=== PATIENT | female | born 1965 | race Caucasian/White ===

== ENCOUNTER 2020-03-07 11:09 | Emergency (ER) | payer SELFPAY ==
[2020-03-07] MEDS ORDERED: NORMAL SALINE 1000 ML 1,000 ML IV ONE (11:32)
[2020-03-07] MEDS ORDERED: KETOROLAC TROMETHAMINE INJ/PF 30 MG/1 ML SDV IV ONE (11:32)
--- NOTE | 2020-03-07 11:36 | ER Document Report ---
ED Medical Screen (RME) - General Chief Complaint: Flank Pain Stated Complaint: URINARY Time Seen by Provider: 03/07/20 11:25 Mode of Arrival: Ambulatory Information source: Patient Notes: 54-year-old female presented to ED for frequent urination starting on Saturday that developed blood by Saturday afternoon. She states she then started with right flank pain. She states she also has a gland in the left side of her neck that feels swollen and tender. She does smoke a pack a day does not drink or use any drugs. 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 Patient is alert oriented respirations regular nonlabored speaking in full sentences. I have greeted and performed a rapid initial assessment of this patient. A comprehensive ED assessment and evaluation of the patient, analysis of test results and completion of medical decision making process will be conducted by an additional ED providers. - Related Data Allergies/Adverse Reactions: Penicillins Allergy (Verified 03/07/20 11:25) Past Medical History - General Information source: Patient - Social History Cigarette use (# per day): Yes - Pack and a half a day Frequency of alcohol use: None Drug Abuse: None Lives with: Family Family history: Reviewed & Not Pertinent - Past Medical History Cardiac Medical History: Reports: None Pulmonary Medical History: Reports: None EENT Medical History: Reports: None Neurological Medical History: Reports: Hx Migraine Endocrine Medical History: Reports: None Renal/ Medical History: Reports: None Malignancy Medical History: Reports: None GI Medical History: Reports: None Musculoskeltal Medical History: Reports Hx Arthritis, Reports Hx Musculoskeletal Deformity, Reports Hx Musculoskeletal Trauma Skin Medical History: Reports None Psychiatric Medical History: Reports: None Traumatic Medical History: Reports: Hx Spine Fracture Infectious Medical History: Reports: None Past Surgical History: Reports: Hx Abdominal Surgery - Laparoscopic for fluid in her abdomen, Hx Appendectomy, Hx Section, Hx Gynecologic Surgery - Cyst removed ruptured artery in her vagina repaired, Hx Orthopedic Surgery - Left elbow Physical Exam - Vital signs Vitals: Temp Pulse Resp BP Pulse Ox 98.7 F 91 18 131/91 H 98 03/07/20 11:15 03/07/20 11:15 03/07/20 11:15 03/07/20 11:15 03/07/20 11:15 Course - Vital Signs Vital signs: Temp Pulse Resp BP Pulse Ox 98.7 F 91 18 131/91 H 98 03/07/20 11:15 03/07/20 11:15 03/07/20 11:15 03/07/20 11:15 03/07/20 11:15
[2020-03-07 12:03] LABS: APPEARANCE,URINE CLEAR; BILIRUBIN,URINE NEGATIVE (NEGATIVE); COLOR,URINE STRAW; GLUCOSE, URINE NEGATIVE (NEGATIVE); KETONES,URINE NEGATIVE (NEGATIVE); LEUKOCYTE ESTERASE,URINE NEGATIVE (NEGATIVE); NITRITE,URINE NEGATIVE (NEGATIVE); PROTEIN,URINE NEGATIVE (NEGATIVE); URINE SPECIFIC GRAVITY 1.004; UROBILINOGEN,URINE NEGATIVE mg/dL (<2.0)
--- NOTE | 2020-03-07 12:26 | RADIOLOGY REPORT (SQ) ---
EXAM DESCRIPTION: CT ABD/PELVIS NO ORAL OR IV IMAGES COMPLETED DATE/TIME: 03/07/2020 12:07 pm REASON FOR STUDY: Right flank pain hematuria COMPARISON: None. TECHNIQUE: CT scan of the abdomen and pelvis performed without intravenous or oral contrast. Images reviewed with lung, soft tissue, and bone windows. Reconstructed coronal and sagittal MPR images revi ewed. All images stored on PACS. All CT scanners at this facility use dose modulation, iterative reconstruction, and/or weight based d osing when appropriate to reduce radiation dose to as low as reasonably achievable (ALARA). [facility]: Dose Right [facility]: CareDose [facility]: Dose Right [facility]: Teradose 4D [facility]: Sun Number RADIATION DOSE: CT Rad equipment meets quality standard of care and radiation dose reduction techniq ues were employed. CTDIvol: 9.4 mGy. DLP: 508 mGy-cm.mGy. LIMITATIONS: None. FINDINGS: LOWER CHEST: No significant findings. No nodules or infiltrates. NON-CONTRASTED LIVER, SPLEEN, ADRENALS: Evaluation limited by lack of IV contrast. Low-density right adrenal mass measuring 3.5 x 2.3 cm most compatible with adrenal adenoma (Hounsfield units -6). No other identified significant masses. PANCREAS: No masses. No peripancreatic inflammatory changes. GALLBLADDER: No identified stones by CT criteria. No inflammatory changes to suggest cholecystitis. RIGHT KIDNEY AND URETER: No suspicious masses. Assessment limited by lack of IV contrast. No signif icant calcifications. No hydronephrosis or hydroureter. LEFT KIDNEY AND URETER: No suspicious masses. Assessment limited by lack of IV contrast. No signifi cant calcifications. No hydronephrosis or hydroureter. AORTA AND RETROPERITONEUM: Aortoiliac atherosclerosis without aneurysm. No retroperitoneal masses or adenopathy. BOWEL AND PERITONEAL CAVITY: No obvious masses or inflammatory changes. No free fluid. APPENDIX: Not clearly identified. PELVIS, BLADDER, AND ABDOMINAL WALL:Decompressed urinary bladder with circumferential wall thickening . No pelvic adenopathy or mass. BONES: No significant findings. OTHER: No other significant finding. IMPRESSION: 1. Decompressed urinary bladder with circumferential wall thickening, possibly secondar y to decompressed state or cystitis. Recommend correlation with urinalysis. No hydronephrosis or ot her evidence of obstructive uropathy. 2. 3.5 x 2.3 cm right adrenal low-density lesion most compatible with an adrenal adenoma. COMMENT: Quality ID # [id number]: Final reports with documentation of one or more dose reduction techniques (e.g., Automated exposure control, adjustment of the mA and/or kV according to patient size, use of iterative reconstruction technique) TECHNICAL DOCUMENTATION: JOB ID: [id number] 2010 [employer]- All Rights Reserved Reading location - IP/workstation name: [email or web address]
[2020-03-07 13:25] LABS: ABSOLUTE BASOPHILS # (AUTO) 0.1 10^3/uL (0.0-0.2); ABSOLUTE EOSINOPHILS # (AUTO) 0.1 10^3/uL (0.0-0.6); ABSOLUTE LYMPHOCYTES (AUTO) 2.8 10^3/uL (0.5-4.7); ABSOLUTE MONOCYTES (AUTO) 0.4 10^3/uL (0.1-1.4); ABSOLUTE NEUT (AUTO) 4.7 10^3/uL (1.7-8.2); BASOPHILS % (AUTO) 0.8 % (0-2); EOSINOPHILS % (AUTO) 0.9 % (0-6); HEMATOCRIT 44.7 % (36.0-47.0); HEMOGLOBIN 15.5 g/dL (12.0-15.5); LYMPHOCYTES % (AUTO) 34.3 % (13-45); MEAN CORPUSCULAR HEMOGLOBIN 33.3 pg (27.0-33.4); MEAN CORPUSCULAR HGB CONC 34.6 g/dL (32.0-36.0); MEAN CORPUSCULAR VOLUME 96 fl (80-97); MONOCYTES % (AUTO) 5.2 % (3-13); PLATELET COUNT 249 10^3/uL (150-450); RED BLOOD COUNT 4.64 10^6/uL (3.72-5.28); RED CELL DISTRIBUTION WIDTH 13.7 % (11.5-14.0); SEGMENTED NEUTROPHILS % (AUTO) 58.8 % (42-78); TOTAL CELLS COUNTED % (AUTO) 100 %
[2020-03-07 13:48] LABS: ALBUMIN 4.3 g/dL (3.5-5.0); ALKALINE PHOSPHATASE 103 U/L (38-126); ANION GAP 6 (5-19); ASPARTATE AMINO TRANSFERASE 27 U/L (14-36); BILIRUBIN,TOTAL 0.6 mg/dL (0.2-1.3); BLOOD UREA NITROGEN 11 mg/dL (7-20); CALCIUM 9.5 mg/dL (8.4-10.2); CARBON DIOXIDE 26 mmol/L (22-30); CHLORIDE 107 mmol/L (98-107); GLUCOSE 101 mg/dL (75-110); POTASSIUM 4.3 mmol/L (3.6-5.0); TOTAL PROTEIN 7.5 g/dL (6.3-8.2)
[2020-03-07] MEDS ORDERED: CIPROFLOXACIN HCL 500 MG TABLET PO ONE (14:45)
--- NOTE | 2020-03-07 14:54 | ER Document Report ---
Entered by ALBERTO SIU SCRIBE 03/07/20 1353 Acting as scribe for:NETO VAZQUEZ MD ED GI/ - General Chief Complaint: Flank Pain Stated Complaint: URINARY Time Seen by Provider: 03/07/20 11:25 Mode of Arrival: Ambulatory Information source: Patient Notes: This 54 year old female patient presents to the emergency department today with complaints of frequent urination and left flank pain since x2 days ago. Patient states she feels like she has to urinate every x3 min and little comes out or nothing. Patient states there is a little amount of blood when wiping. Patient states she has been drinking plenty of water and denies any discharge or fever. Patient also reports some pain in the"lymph node under her left ear." - Related Data Allergies/Adverse Reactions: Penicillins Allergy (Verified 03/07/20 11:25) Past Medical History - General Information source: Patient - Social History Smoking Status: Current Every Day Smoker Cigarette use (# per day): Yes - Pack and a half a day Frequency of alcohol use: None Drug Abuse: None Lives with: Family Family History: Reviewed & Not Pertinent Patient has homicidal ideation: No Neurological Medical History: Reports: Hx Migraine Musculoskeletal Medical History: Reports Hx Arthritis, Reports Hx Musculoskeletal Deformity, Reports Hx Musculoskeletal Trauma Traumatic Medical History: Reports: Hx Spine Fracture Past Surgical History: Reports: Hx Abdominal Surgery - Laparoscopic for fluid in her abdomen, Hx Appendectomy, Hx Section, Hx Gynecologic Surgery - Cyst removed ruptured artery in her vagina repaired, Hx Orthopedic Surgery - Left elbow Review of Systems - Review of Systems Constitutional: See HPI. denies: Fever EENT: No symptoms reported Cardiovascular: No symptoms reported Respiratory: No symptoms reported Gastrointestinal: No symptoms reported Genitourinary: See HPI, Frequency, Flank pain - L. denies: Discharge Female Genitourinary: No symptoms reported Musculoskeletal: See HPI Skin: No symptoms reported Hematologic/Lymphatic: No symptoms reported Neurological/Psychological: No symptoms reported -: Yes All other systems reviewed and negative Physical Exam - Vital signs Vitals: Temp Pulse Resp BP Pulse Ox 98.7 F 91 18 131/91 H 98 03/07/20 11:15 03/07/20 11:15 03/07/20 11:15 03/07/20 11:15 03/07/20 11:15 - General General appearance: Appears well, Alert - HEENT Head: Normocephalic, Atraumatic Eyes: Normal Pupils: PERRL Ears: Normal External canal: Normal Tympanic membrane: Normal Pharynx: Erythema Neck: Normal - Respiratory Respiratory status: No respiratory distress Chest status: Nontender Breath sounds: Normal Chest palpation: Normal - Cardiovascular Rhythm: Regular Heart sounds: Normal auscultation Murmur: No - Abdominal Inspection: Normal Distension: No distension Bowel sounds: Normal Notes: Tenderness with palpation to the suprapubic region and left flank. - Extremities General upper extremity: Normal inspection. No: Edema General lower extremity: Normal inspection. No: Edema - Neurological Neuro grossly intact: Yes Cognition: Normal Orientation: AAOx4 Speech: Normal - Psychological Associated symptoms: Normal affect, Normal mood - Skin Skin Temperature: Warm Skin Moisture: Dry Skin Color: Normal Course - Re-evaluation Re-evalutation: 03/07/20 14:50 Patient is feeling better minimal pain at this time. - Vital Signs Vital signs: Temp Pulse Resp BP Pulse Ox 98.7 F 91 18 131/91 H 98 03/07/20 11:15 03/07/20 11:15 03/07/20 11:15 03/07/20 11:15 03/07/20 11:15 - Laboratory Result Diagrams: 03/07/20 13:00 03/07/20 13:00 Laboratory results interpreted by me: 03/07/20 11:46 Urine Blood MODERATE H 03/07/20 14:50 Urinalysis shows moderate blood no other acute process noted in the urine no evidence for infection. - Diagnostic Test Radiology reviewed: Image reviewed, Reports reviewed Radiology results interpreted by me: 03/07/20 14:50 CT of abdomen and pelvis shows that there is no evidence for hydronephrosis or any renal calculi. Patient does have an incidental adrenal adenoma noted on on the scan. No other acute process. Discharge - Discharge Clinical Impression: Hematuria, Left flank pain, Adrenal adenoma Condition: Stable Disposition: HOME, SELF-CARE Instructions: Abdominal Pain ([facility]) Additional Instructions: Hematuria Hematuria, or blood in your urine, can be caused by minor medical problems, such as a bladder infection, or by more serious medical conditions, such as kidney stones or even tumors of the bladder or kidney. If the cause of the hematuria is known (such as a bladder infection) and can be treated, it may not need further evaluation. If the cause is not known, it will usually require further evaluation by a specialist, such as a urologist. In particular, unexplained hematuria in the older patient must be evaluated to rule out a serious condition, such as a bladder or kidney tumor. If the hematuria worsens or you are passing clots and then are unable to urinate, you should be re-evaluated. A catheter may need to be placed in the bladder to permit passage of urine. If you develop high fever, severe pain, or other new or worsening symptoms, return to the Emergency Department for re- evaluation. Your CT scan today does not disclose that there is a acute kidney stone blockage going on at this time. You may have passed a stone because there is blood noted in the urine no evidence for any infection however I will place you on some antibiotics and pain medication to take and follow-up with your primary care physician. Prescriptions: Ciprofloxacin HCl [Cipro 500 mg Tablet] 500 mg PO BID #20 tablet Ibuprofen [Ibu] 800 mg PO TID PRN #21 tablet PRN Reason: For Pain Scale 3-5 Referrals: ED BRYANT MD [NO LOCAL MD] - Follow up as needed I personally performed the services described in the documentation, reviewed and edited the documentation which was dictated to the scribe in my presence, and it accurately records my words and actions.
[2020-03-07 15:23] VITALS: BP 129/79
== END 2020-03-07 15:24 | disposition home or self-care (01) ==
LOC: ER 11:09
DX: D35.00 Benign neoplasm of unspecified adrenal gland (principal); R10.9 Unspecified abdominal pain; R31.9 Hematuria, unspecified; R30.0 Dysuria; F17.210 Nicotine dependence, cigarettes, uncomplicated; Z88.0 Allergy status to penicillin
CPT/HCPCS: 99284; 96361; 96374; 36415; 85025; 80053; 81001; 74176; J1885; J7030